=== PATIENT | female | born 1960 | race Asian ===

== ENCOUNTER 2022-03-17 07:26 | Day surgery (SDC) | payer OTHER ==
[~2022-03-17] VITALS: Ht 160 cm; Wt 80.3 kg
[2022-03-17] MEDS ORDERED: fentaNYL citrate 0.05 MG/ML VIAL ONE (09:09)
[2022-03-17] MEDS ORDERED: diphenhydrAMINE 50 MG/ML VIAL ONE (09:09)
[2022-03-17] MEDS ORDERED: MIDAZOLAM 5 MG/5 ML VIAL ONE (09:10)
[2022-03-17] MEDS ORDERED: MIDAZOLAM 2 MG/2 ML VIAL IVP ONE (14:05)
[2022-03-17] MEDS ORDERED: fentaNYL citrate 0.05 MG/ML VIAL IVP ONE (14:05)
== END 2022-03-17 10:45 | disposition home or self-care (01) ==
LOC: MOR 07:26 → MMU 07:27 → MOR 10:45
PROVIDERS: ATTEND Internal Medicine Gastroenterology
DX: Z12.11 Encounter for screening for malignant neoplasm of colon (principal); R13.10 Dysphagia, unspecified; Z90.49 Acquired absence of other specified parts of digestive tract; Z79.899 Other long term (current) drug therapy; Z20.822 Contact with and (suspected) exposure to COVID-19
CPT/HCPCS: 43239; 45378; 87426; J2250; J3010; J1200